=== PATIENT | female | born 1985 | race Caucasian/White ===

== ENCOUNTER 2022-02-18 06:22 | Day surgery (SDC) | payer OTHER, SELFPAY ==
[2022-02-18] VITALS (10 sets, daily range): BP systolic 90–122; BP diastolic 42–76; PULSE 67–84; RESP 12–16; TEMP 36.3–36.9; O2SAT 92–100; BMI 37.5
[2022-02-18 06:55] LABS: HCG Qualitative* Negative (Negative)
[2022-02-18] MEDS: SODIUM CHLORIDE 0.9 % (FLUSH) 10 ML SYRINGE IVF (06:55)
[2022-02-18] MEDS: LACTATED RINGERS 1000 ML 1,000 ML 100 ML IV ×2 (07:00→09:00)
--- NOTE | 2022-02-18 07:03 | SUR.PREOP ---
Viewed a picture of pt's negative home Covid test.
--- NOTE | 2022-02-18 07:30 | CRLHL7_ITS ---
For Patients: As a result of the Century Cures Act, medical imaging exams and procedure reports are released immediately into your electronic medical record. You may view this report before your referring provider. If you have questions, please contact your health care provider. INDICATION : Laparoscopic cholecystectomy. TECHNIQUE : Intraoperative cholangiogram. Contrast injected via gallbladder neck and cystic duct. FINDINGS : Fluoroscopy time was 29.7 seconds. One image was obtained. IMPRESSION : Normal caliber intra and extrahepatic ducts. No filling defects. Contrast seen within the duodenum. Normal intraoperative cholangiogram. Dictated by Milan Valle MD @ 02/18/2022 9:14:45 AM (Electronically Signed)
[2022-02-18] MEDS: CLINDAMYCIN 900 MG/50 ML-D5W IVPB (07:42)
[2022-02-18] MEDS: 0.9% SODIUM CHL 50 ML VIAL INJECTION (09:10)
[2022-02-18] MEDS: IOPAMIDOL 50 ML VIAL INJECTION (09:10)
[2022-02-18] MEDS: BUPIVACAINE 0.25% 30 ML INJECTION (09:24)
--- NOTE | 2022-02-18 09:38 | W.ANESCHARGE ---
Anesthesia Charges Start Date/Time Anesthesia Start Date: 02/18/22 Anesthesia Start Time: 07:34 Stop Date/Time Anesthesia Stop Date: 02/18/22 Anesthesia Stop Time: 09:38 Summary Emergency: No
--- NOTE | 2022-02-18 09:41 | P.GSOP_ITS ---
Operative Note Date of procedure: 02/18/22 Type of Procedure: 1. Laparoscopic cholecystectomy 2. Intraoperative cholangiogram Procedure Description: After discussing the risks and benefits of the procedure, the patient signed informed consent.? The operative site was marked and the patient was brought to the operating room and placed on the operating table in supine position.? Care was taken to pad the patient's pressure points.?? The patient was then intubated by anesthesia.?? The operative site was then prepped and draped in the usual sterile fashion.? A time-out was then performed. Entrance to the abdomen was gained via has son technique below the umbilicus. Cautery was used to dissect down to fascia and the fascia was grasped and incised between 2 Jarrod clamps. Peritoneum was then entered and a 0 Vicryl fascial suture was placed. [place] port was then placed and the abdomen insufflated. Three 5 mm ports were then placed 1 in the left upper quadrant, and 2 along the costal margin on the right. The patient was then placed in reverse Trendelenburg position with the right side up. The gallbladder fundus was grasped and retracted cephalad. The gallbladder was noted to be quite long. There were stones noted and omental adhesions. These were dissected away from the gallbladder using cautery. The infundibulum was grasped. A combination of hook cautery and blunt dissection was used to carefully dissect out the cystic duct until it could clearly be seen entering the gallbladder. During this dissection, the gallbladder was noted to be quite edematous, indicating inflammation. The gallbladder seemed to fold back upon itself creating a very elongated cystic duct/infundibulum junction. There were multiple small vascular structures going into the gallbladder, along the peritoneal edge, and in fact the cystic artery actually appeared to be on the lateral aspect of the gallbladder. With the exception of the cystic artery which was controlled in the usual fashion with 2 clips proximal 1 clip distal and divided with scissors, small vessels did bleed easily and therefore they were clipped for hemostasis. All were small and were clearly going toward the gallbladder. The gallbladder was then able to be dissected off the cystic plate proximally mcfp up toward the liver bed to ensure the critical view. The cystic duct was quite large. There were multiple stones in the gallbladder neck and cystic duct. These were milked back into the gallbladder itself and a clamp was placed across the gallbladder to ensure they did not spill out. I then created a ductotomy. A cholangiocatheter was brought into the field and I advanced this into the cystic duct stump. This was then clamped and a saline leak test was performed. The patient was then laid flat and fluoro was brought into the field. Contrast was injected and this filled up the biliary tree, the cystic duct, common bile duct and right and left hepatic ducts. There was brisk filling of the duodenum, however my clamp was positioned exactly in front of the distal common bile duct. The C-arm was rotated to obtain a better view and while the distal common bile duct did appear to sit over the duodenum, it did not appear as though there were any obvious filling defects and there was still ample contrast within the duodenum. The cholangiocatheter was then removed and the patient was placed back into reverse Trendelenburg with the right side up. The cystic duct was then transected and looped with an 0 Vicryl and an 0 PDS endoloop. At this point hemostasis appeared excellent. Once this was done, the gallbladder was then taken off of the liver bed and rem phuc from the abdomen using an Endo-Catch bag. The gallbladder bed was surveyed for hemostasis which appeared adequate. A small amount of bile which had spilled was suctioned from the abdomen. The remaining ports were then removed and the abdomen desufflated. The umbilical port fascia was closed with the previously placed 0 Vicryl stitch. The skin was closed with absorbable subcuticular suture. Sterile dressings were then applied Instrument sponge and needle counts were correct at the end of the case. The patient was then woken and transferred to the PACU in stable condition. Findings: 1) Edematous gallbladder with omental adhesions. 2) gallstone 3) no filling defects noted on cholangiogram Anesthesia: GETA Surgeon: Radha Carrington MD Estimated blood loss (mL): 50 Condition: stable Disposition: PACU
--- NOTE | 2022-02-18 09:41 | W.ANESCHARGE ---
Anesthesia Charges Start Date/Time Anesthesia Start Date: 02/18/22 Anesthesia Start Time: 07:34 Stop Date/Time Anesthesia Stop Date: 02/18/22 Anesthesia Stop Time: 09:38 Summary Emergency: No
[2022-02-18] MEDS: HYDROCODONE-ACETAMIN 5-325 MG 1 TAB PO (10:23)
== END 2022-02-18 11:10 | disposition home or self-care (01) ==
PROVIDERS: Nurse Anesthetist, Certified Registered; PCP Family Medicine; Visit Provider Surgery
PROC: 0FT44ZZ Resection of Gallbladder, Percutaneous Endoscopic Approach (ICD-10-PCS; CPT 47563; principal; 2022-02-18 07:30)
DX: K80.10 Calculus of gallbladder with chronic cholecystitis without obstruction (principal)
CPT/HCPCS: 47563; 00790; 74300; 76000; 84703; 88304; A9270; J0330; J1100; J1170; J1885; J2250; J2405; J2704; J3010; J3490; J7120; Q9967; S0077

== ENCOUNTER 2023-09-17 15:07 | Outpatient (REF) | payer OTHER, SELFPAY ==
[2023-09-17 15:52] LABS: Cholesterol* 159 mg/dL (90-199)
[2023-09-17 15:53] LABS: HDL Cholesterol* 36 mg/dL (>=50); LDL Cholesterol Calculated 102 mg/dL (<100); Triglycerides* 104 mg/dL (40-149)
[2023-09-17 16:41] LABS: Vitamin B12* 739 pg/mL (243-894)
== END 2023-09-17 15:08 | disposition home or self-care (01) ==
LOC: NPINS 15:07
PROVIDERS: Internal Medicine; PCP Family Medicine
DX: E34.9 Endocrine disorder, unspecified (principal); E66.3 Overweight; E56.9 Vitamin deficiency, unspecified
CPT/HCPCS: 80061; 82607